=== PATIENT | male | born 1970 | race African-American/Black ===

== ENCOUNTER 2021-06-25 18:41 | Emergency (ER) | payer SELFPAY ==
[~2021-06-25] VITALS: Ht 175.3 cm; Wt 90.7 kg
[2021-06-25 18:52] VITALS: BP 158/116
[2021-06-25] MEDS ORDERED: IBUP-2218 PO (19:10)
== END 2021-06-25 19:15 | disposition home or self-care (01) ==
LOC: MED 18:41
DX: S01.01XA Laceration without foreign body of scalp, initial encounter (principal); W22.8XXA Striking against or struck by other objects, initial encounter; Y93.89 Activity, other specified; Y92.89 Other specified places as the place of occurrence of the external cause; Y99.8 Other external cause status
CPT/HCPCS: 99282

== ENCOUNTER 2021-07-06 18:37 | Emergency (ER) | payer OTHER ==
[~2021-07-06] VITALS: Ht 175.3 cm; Wt 90.7 kg
[~2021-07-06 18:37] MED LIST: IBUP-2218 PO
[2021-07-06 19:02] VITALS: BP 177/105
--- NOTE | 2021-07-06 19:51 | NUR ---
PT TAKEN TO BED 5
--- NOTE | 2021-07-06 19:54 | NUR ---
Dr. Gonzalez examining patient.
[2021-07-06] MEDS ORDERED: LIDOCAINE MPF 1% 10 MG/ML VIAL INJ ONE (20:00)
--- NOTE | 2021-07-06 20:01 | NUR ---
PT MOVED TO ER BED 8
--- NOTE | 2021-07-06 20:25 | NUR ---
ER MD AT BEDSIDE PERFORMING PROCEDURE
--- NOTE | 2021-07-06 20:30 | NUR ---
51 Y/O MALE BIB SELF C/O LACERATION TO FINDER. PATIENT PRESENTS TO ED WITH LEFT HAND, FIRST DIGIT LACERATION FROM DREMEL TOOL. PT STATES HE WASN'T GOING TO COME TO THE ER BUT HAD TROUBLE KEEPING WOUND SHUT. DENIES N/V/D; SKIN IS PINK/WARM/DRY; AAOX4 WITH EVEN AND STEADY GAIT; LUNGS CLEAR BL; HR EVEN AND REGULAR; PT DENIES ANY FEVER, CP, SOB, OR COUGH AT THIS TIME; PATIENT STATES PAIN OF 4/10 AT THIS TIME; VSS; PATIENT POSITIONED FOR COMFORT; HOB ELEVATED; BEDRAILS UP X2; BED DOWN. ER MD MADE AWARE OF PT STATUS. HX:HTN NKA MED: HTN MED (CANNOT REMEMBER NAME)
--- NOTE | 2021-07-06 20:57 | NUR ---
Patient discharged with v/s stable. Written and verbal after care instructions given and explained. Patient verbalized understanding. Ambulatory with steady gait. All questions addressed prior to discharge. Advised to follow up with PMD. A/OX4, UNLABORED BREATHING, AMBULATORY W/O ASSISTANCE, BLEEDING CONTROLLED.
[2021-07-06 21:04] VITALS: BP 177/105
== END 2021-07-06 20:57 | disposition home or self-care (01) ==
LOC: MED 18:37
DX: S61.210A Laceration without foreign body of right index finger without damage to nail, initial encounter (principal); I10 Essential (primary) hypertension; Z79.01 Long term (current) use of anticoagulants; W29.8XXA Contact with other powered hand tools and household machinery, initial encounter; Y92.89 Other specified places as the place of occurrence of the external cause; Y93.89 Activity, other specified; Y99.8 Other external cause status
CPT/HCPCS: 12001; 99282; J2001